=== PATIENT | female | born 1935 | race Caucasian/White ===

== ENCOUNTER 2019-09-07 12:26 | Inpatient (IN) ==
--- NOTE | 2019-09-07 12:54 | Emergency Department Note ---
ED Disposition Clinical Impression: Chronic obstructive pulmonary disease (COPD), Urinary tract infection, Dehydration, Altered mental status, Generalized weakness, Hypertension, Hyperlipidemia, Cigarette smoker, SIRS (systemic inflammatory response syndrome) Disposition: Admitted As Inpatient Condition on Discharge: Serious Referrals: Anna Brewster APRN [Primary Care Provider] - Time of Disposition: 16:09 - Critical Care Critical Care Time: No Attestation: On 09/07/19, the high probability of a clinically significant, sudden or life threatening deterioration of the following system(s) required my full and direct attention, intervention and personal management. The time I documented below is in addition to time spent performing reported procedures but includes the following listed in this critical care notation. Medical Decision Making - Medical Records Medical records reviewed: Yes: I reviewed the patient's medical records. - Rick Inquiry Pt receiving controlled substance: No Vital Signs: 09/07/19 12:36 09/07/19 14:01 09/07/19 14:55 Temperature 98.5 F Temperature Source Oral Pulse Rate Pulse Rate [Right Radial] 92 H 88 86 Respiratory Rate 20 Blood Pressure [Right Arm] 106/52 L 130/64 126/56 L Blood Pressure Mean [Right Arm] 70 86 79 Blood Pressure Source [Right Arm] Automatic Cuff Automatic Cuff Blood Pressure Position [Right Arm] Sitting Sitting 02 Sat by Pulse Oximetry 91 L 98 98 Oxygen Delivery Method Room Air Nasal Cannula Nasal Cannula Oxygen Flow Rate (LPM) 2 2 09/07/19 14:57 09/07/19 15:00 09/07/19 16:05 Temperature Temperature Source Pulse Rate 98 H Pulse Rate [Right Radial] 92 H 90 Respiratory Rate 22 Blood Pressure [Right Arm] 115/46 L 135/57 L Blood Pressure Mean [Right Arm] 69 83 Blood Pressure Source [Right Arm] Automatic Cuff Blood Pressure Position [Right Arm] Sitting 02 Sat by Pulse Oximetry 94 L 99 97 Oxygen Delivery Method Nasal Cannula Nasal Cannula Nasal Cannula Oxygen Flow Rate (LPM) 3 2 2 - Lab Data Lab Results 09/07/19 12:40: Specimen Source Right radial, O2 % 21, ABG pH 7.35, ABG pCO2 48.1 H, ABG pO2 59.1 L, ABG HCO3 26.0, ABG Total CO2 27.5 H, ABG O2 Saturation 90, ABG Base Excess 0.4, Nav Test Acceptable 09/07/19 13:22: WBC 21.7 H*, RBC 4.74, Hgb 14.2, Hct 42.8, MCV 90.5, MCH 30.0, MCHC 33.2, RDW 12.6, Plt Count 265, MPV 8.2, Neut % (Auto) 88.9 H, Lymph % (Auto) 5.4 L, [place] % (Auto) 4.4, Eos % (Auto) 1.1, Baso % (Auto) 0.2, Neut # (Auto) 19.3 H, Lymph # (Auto) 1.2, [place] # (Auto) 0.9, Eos # (Auto) 0.2, Baso # (Auto) 0.0, Total Counted 100, Neutrophils % (Manual) 88 H, Lymphocytes % (Manual) 8 L, Monocytes % (Manual) 4, Platelet Estimate Normal, RBC Morphology Normal 09/07/19 13:22: Sodium 139, Potassium 4.0, Chloride 97 L, Carbon Dioxide 27, A nion Gap 19.0 H, BUN 46 H, Creatinine 1.00, Estimated Creat Clear 32, Estimated GFR 53 L, Est GFR ( Amer) 64, Glucose 135 H, Calcium 9.6, Total Bilirubin 0.7, AST 16, ALT 19, Alkaline Phosphatase 89, Troponin I < 0.02, Total Protein 7.5, Albumin 4.2, Globulin 3.3 H, Albumin/Globulin Ratio 1.3, TSH 0.67 09/07/19 13:50: Urine Color Yellow, Urine Appearance Clear, Urine pH 5.5, Ur Specific [place] >= 1.030, Urine Protein Trace, Urine Glucose (UA) Negative, Urine Ketones 1+, Urine Blood 1+, Urine Nitrate Negative, Urine Bilirubin Negative, Urine Urobilinogen 0.2, Ur Leukocyte Esterase Negative, Urine RBC 3-5, Urine WBC 5-10, Ur Squamous Epith Cells Occasional, Urine Bacteria 3+ A 09/07/19 13:55: Lactate 1.0 Result diagrams: 09/07/19 13:22 09/07/19 13:22 Orders (Tests/Meds): ED MEDICATIONS Discontinued Medications Generic Name Dose Route Start Last Admin Trade Name Freq PRN Reason Stop Dose Admin Albuterol/Ipratropium 3 ml 09/07/19 14:05 09/07/19 14:56 Duoneb 3ml Neb IH 09/07/19 14:06 3 ml ONCE ONE Administration Levofloxacin/Dextrose 500 mg in 100 mls @ 100 mls/hr 09/07/19 14:15 09/07/19 14:13 Levaquin 500mg/100ml Premix IV 09/07/19 15:14 100 mls/hr ONCE ONE Administration Protocol Sodium Chloride 500 mls @ 999 mls/hr 09/07/19 14:15 09/07/19 14:15 Sod Chlor 0.9% 1000ml Bag IV 09/07/19 14:45 999 mls/hr .Q31M APRIL Administration ORDERS Category Date Time Status Troponin I Q3H Lab 09/07/19 15:45 Ordered Troponin I Q3H Lab 09/07/19 18:45 Ordered Blood Culture Stat Micro 09/07/19 14:00 Received Urine Culture(cathed specimen) Stat Micro 09/07/19 13:50 Received - ECG Data Tracing #1 I reviewed this ECG and interpreted as documented below: Normal sinus rhythm at a ventricular rate of 94 bpm. Normal [place] interval at 162 ms. Normal QRS duration at 72 ms. Normal corrected QT interval at 425 ms. Normal QRS axis. Normal ST segment and normal T waves. No ectopy. No blocks. No hypertrophy. Normal twelve-lead EKG ECG initial impression date: 09/07/19 ECG initial impression time: 13:32 ECG normal with no acute: arrhythmias, ischemia, conduction abnormalities, chamber hypertrophy Normal Sinus Rhythm: Yes General Adult HPI - General Chief complaint: Altered Mental Status Stated complaint: Confusion Time Seen by Provider: 09/07/19 12:40 Mode of Arrival: Wheelchair Limitations: Altered Mental Status Description of Symptoms (Recalled from ER Triage Doc. by RN): family states that patient was found at home confused today. pt is normally independent and lives alone. last known well time was 2 days ago. pt c/o to family member today that she had some discomfort when voiding. - History of Present Illness HPI narrative: 84-year old thin female chronic smoker with a history of COPD is brought to the emergency department by her family who report that the patient is confused. This morning the patient was found by family members to be slow to answer questions and slow to initiate movement. She placed her oxygen in her mouth rather than on her nose. Family members state that the patient had a similar episode with a previous bout of pneumonia. Family also state that it looks as though she did not get out of bed all day yesterday. Family members also state that she has not requested a cigarette this morning which is abnormal for her. Onset (ago): unknown (Patient was found with the symptoms this morning.) Severity: moderate Consistency: constant Relieving factors: none Exacerbating factors: none Treatments prior to arrival: none - Related Data Home Medications Medication Instructions Recorded Confirmed Aspirin [Aspirin 81mg EC Tab] 81 mg PO DAILY 09/07/19 09/07/19 Buspirone HCl [Buspirone 15 mg 7.5 mg PO BID 09/07/19 09/07/19 Tablets] Citalopram Hydrobromide [Celexa 10 mg PO DAILY 09/07/19 09/07/19 10mg Tablet] Fluticasone Propionate [Flonase 2 spr NS DAILY 09/07/19 09/07/19 50mcg nasal spray 16gm] Fluticasone Propionate [Flovent 1 puffs IH BID 09/07/19 09/07/19 Hfa 110mcg Inhaler] Ipratropium/Albuterol Sulfate 1 puff IH DAILY 09/07/19 09/07/19 [Combivent Respimat Inh] Ipratropium/Albuterol Sulfate 3 ml IH DAILY 09/07/19 09/07/19 [Duoneb 3mL neb] Mirtazapine [Remeron 15mg tablet] 15 mg PO HS 09/07/19 09/07/19 Simvastatin 20 mg PO HS 09/07/19 09/07/19 Solifenacin Succinate [Vesicare] 5 mg PO DAILY 09/07/19 09/07/19 Allergies Allergy/AdvReac Type Severity Reaction Status Date / Time Penicillins Allergy Verified 09/07/19 12:[address] [facility] History - Hepatitis A Screen Drug use history?: No High risk sexual behaviors?: No History of sexually transmitted infection?: No Currently employed?: No Childcare worker?: No Do you have indoor plumbing?: Yes Do you have electricity?: Yes Attestation statement:: This patient has been screened for Hepatitis A risk factors. I have reviewed the patient's past medical history: Yes Medical History: Reports:: Chronic Obstructive Pulmonary Disease (COPD), Hyperlipidemia, Hypertension Denies:: Diabetes Mellitus Type 1, Diabetes Mellitus Type 2 Other Surgeries: Yes: Appendectomy, Amputation: No Fractures: Yes - Social History Smoking Status: Current every day smoker # Packs/Day (cigarettes): 1 Alcohol Intake: never Alcohol Intake Frequency:: holidays/special occasions only Occupational Status: retired Family Hx:: Cancer, Stroke ROS Obtained: Yes Systems reviewed as appropriate & no additional complaints - Constitutional Constitutional: Reports fatigue, Reports malaise - Eyes Eyes: Reports system reviewed and no additional complaints, except as docu - ENT Ears, Nose, Mouth, and Throat: Reports system reviewed and no additional complaints, except as docu - Cardiovascular Cardiovascular: Reports system reviewed and no additional complaints, except as docu - Respiratory Respiratory: Yes non-productive cough - Gastrointestinal Gastrointestingal: Reports: system reviewed and no additional complaints, except as docu - Genitourinary Female Genitourinary: Reports dysuria - Musculoskeletal Musculoskeletal: Reports system reviewed and no additional complaints, except as docu - Integumentary/Breasts Skin/Breast: Reports system reviewed and no additional complaints, except as docu - Neurologic Neurologic: Reports confusion - Endocrine Endocrine: Reports system reviewed and no additional complaints, except as docu - Hematologic/Lymphatic Henatologic/Lymphatic: Reports system reviewed and no additional complaints, except as docu - Allergic/Immunologic Allergic/Immunologic: Reports system reviewed and no additional complaints, except as docu Physical Exam - General General appearance: in no apparent distress - Head Head exam: atraumatic, normocephalic, normal inspection - Eye Eye exam: Present: normal appearance, PERRL, EOMI - ENT ENT exam: Present: mucous membranes moist - Neck Neck exam: Present: normal inspection, full ROM, trachea midline. Absent: meningismus, lymphadenopathy - Chest Chest inspection: Present: normal inspection, symmetric chest wall rise. Absent: tenderness - Respiratory Respiratory exam: Present: wheezes. Absent: respiratory distress - Cardiovascular Cardiovascular exam: Present: regular rate, normal rhythm, normal heart sounds. Absent: JVD - Abdominal Exam Abdominal exam: Present: soft, normal bowel sounds. Absent: distention, tenderness, guarding - Extremities Exam Extremities exam: Present: normal inspection, full ROM, normal capillary refill. Absent: calf tenderness - Back Exam Back exam: Present: normal inspection. Absent: tenderness - Neurological Exam Neurological exam: Present: alert, CN II-XII intact. Absent: motor sensory deficit - Psychiatric Psychiatric exam: Present: normal affect, normal mood - Skin Skin exam: Present: warm, dry, intact, normal color
[2019-09-07 13:20] LABS: ABG Base Excess 0.4 mmol/L (-2.4-2.3); ABG Oxygen Saturation 90 % (90-100); ABG PCO2 48.1 mmhg (35.0-45.0); ABG PH 7.35 mmol/L (7.35-7.45); ABG PO2 59.1 mmhg (80-100); ABG TCO2 27.5 mmhg (23-27)
[2019-09-07 13:26] LABS: Allen's Test ACCEPTABLE; Oxygen 21 %
[2019-09-07 13:37] LABS: Basophils % 0.2 % (0.1-2.0); Eosinophils # 0.2 K/mm3 (0.0-0.4); Eosinophils % 1.1 % (0.1-12.0); Hematocrit 42.8 % (37.0-47.0); Hemoglobin 14.2 g/dL (12.2-16.2); Lymphocytes # 1.2 K/mm3 (0.7-4.5); Lymphocytes % 5.4 % (10-50); Mean Corpuscular HGB Conc 33.2 g/dL (31.8-35.4); Mean Corpuscular Volume 90.5 fl (81-99); Mean Platelet Volume 8.2 fl (7.4-10.4); Monocytes # 0.9 K/mm3 (0.1-1.0); Monocytes % 4.4 % (1.7-9.3); Neutrophils # 19.3 K/mm3 (1.8-7.8); Neutrophils % 88.9 % (37.0-80.0); Platelet Count 265 K/mm3 (142-424); Red Blood Count 4.74 M/mm3 (4.20-5.40); Red Cell Distribution Width 12.6 % (11.5-17.5); White Blood Count 21.7 K/mm3 (4.8-10.8)
[2019-09-07 14:00] LABS: Alanine Aminotransferase 19 U/L (12-78); Albumin Level 4.2 gm/dL (3.4-5.0); Albumin/Globulin Ratio 1.3 (1.1-1.8); Alkaline Phosphatase 89 U/L (46-116); Aspartate Amino Transferase 16 U/L (15-37); Bilirubin,Total 0.7 mg/dL (0.2-1.0); Blood Urea Nitrogen 46 mg/dL (7-18); Calcium 9.6 mg/dL (8.5-10.1); Carbon Dioxide 27 mmol/L (21.0-32.0); Chloride 97 mmol/L (98-107); Globulin 3.3 gm/dl (1.3-3.2); Glucose 135 mg/dL (74-106); Sodium 139 mmol/L (136-145); Thyroid Stimulating Hormone 0.67 uIU/ml (0.358-3.740); Total Protein,Serum 7.5 gm/dL (6.4-8.2)
[2019-09-07 14:06] LABS: Lymphocytes % 8 % (10-50); Monocytes % 4 % (2-9); Neutrophils % 88 % (42-76); RBC Morphology Normal; Total Cells Counted 100
[2019-09-08 06:42] LABS: Eosinophils % 0.3 % (0.1-12.0); Hematocrit 37.8 % (37.0-47.0); Lymphocytes # 0.6 K/mm3 (0.7-4.5); Lymphocytes % 4.1 % (10-50); Mean Corpuscular HGB Conc 33.3 g/dL (31.8-35.4); Mean Corpuscular Volume 90.9 fl (81-99); Mean Platelet Volume 8.9 fl (7.4-10.4); Monocytes # 0.3 K/mm3 (0.1-1.0); Neutrophils # 12.8 K/mm3 (1.8-7.8); Neutrophils % 93.6 % (37.0-80.0); Platelet Count 213 K/mm3 (142-424); Red Blood Count 4.16 M/mm3 (4.20-5.40); Red Cell Distribution Width 12.8 % (11.5-17.5); White Blood Count 13.7 K/mm3 (4.8-10.8)
[2019-09-08 06:56] LABS: Albumin Level 3.1 gm/dL (3.4-5.0); Anion Gap 9.9 mEq/L (5-15); Bilirubin,Total 0.4 mg/dL (0.2-1.0); Calcium 8.7 mg/dL (8.5-10.1); Chol/HDL Ratio 1.8 (1-3.5); Total Protein,Serum 6.1 gm/dL (6.4-8.2)
[2019-09-08 06:58] LABS: Phosphorous 1.8 mg/dL (2.4-4.9)
[2019-09-08 07:00] LABS: Hemoglobin 12.6 g/dL (12.2-16.2)
--- NOTE | 2019-09-08 07:28 | Pharmacy Consult Notes ---
[facility] Pharmacy VTE Monitoring - Patient Demographics Admission date: 09/07/19 Report Date: 09/08/19 Time: 07:28 Allergies/Adverse Reactions: Patient Allergies Penicillins Allergy (Verified 09/07/19 12:40) Height: 1.45 m Weight: 47.372 kg Patient Problems: Current Active Problems Chronic obstructive pulmonary disease (COPD) (Acute) Urinary tract infection (Acute) Dehydration (Acute) Altered mental status (Acute) Generalized weakness (Acute) Hypertension (Acute) Hyperlipidemia (Acute) Cigarette smoker (Acute) SIRS (systemic inflammatory response syndrome) (Acute) - VTE Risk Labs: VTE Related Lab Results Hgb 12.6 g/dL (12.2-16.2) D 09/08/19 06:23 Hct 37.8 % (37.0-47.0) 09/08/19 06:23 Plt Count 213 K/mm3 (142-424) 09/08/19 06:23 BUN 19 mg/dL (7-18) H D 09/08/19 06:23 Creatinine 0.52 mg/dL (0.55-1.02) L D 09/08/19 06:23 Estimated Creat Clear 30 mL/min (50-200) 09/08/19 06:23 Was VTE Risk Assessment Performed: Yes VTE Score: 5 VTE Risk Level: Low Risk - Prophylaxis VTE Prophylaxis Ordered?: Yes Types of VTE Prophylaxis: TEDS Knee High Location of Applied Device: Bilateral Lower Extremeties - VTE Diagnosis Confirmed Treatment or plan recommended: Continue Current Treatment
--- NOTE | 2019-09-08 08:27 | History & Physical Report ---
*Admission Date: 09/07/19 *Chief complaint: ams *History of present illness: 84-year old thin chronic ill appearing female with a history of COPD is brought to the ED by her family who report that the patient is confused, patient was found by family members to be slow to answer questions and slow to initiate movement. She placed her oxygen in her mouth rather than on her nose and had given herself a breathing treatment. Per family patient was her normal self on Saturday. Pt admitted for uti with 3+ bacteria. culture pending. [facility] History I have reviewed the patient's past medical history: Yes Medical History: Reports:: Chronic Obstructive Pulmonary Disease (COPD), Hyperlipidemia, Hypertension Denies:: Diabetes Mellitus Type 1, Diabetes Mellitus Type 2 *Have you ever received a pneumonia vaccine?: Yes *Have you received a flu vaccine this season?: Yes Other Surgeries: Yes: Appendectomy, Amputation: No Fractures: Yes - *Social History Smoking Status: Current every day smoker Tobacco Type: cigarettes # Packs/Day (cigarettes): 1 Alcohol Intake: current Alcohol Intake Frequency:: holidays/special occasions only *Occupational Status:: retired *Travel in the last 8 weeks: None Family Hx:: Cancer, Stroke Review of Systems - Review of Systems Review of systems:: pertinent systems reviewed and negative unless documented below - Constitutional Denies body ache(s), Denies lack of energy - Eyes Denies change in vision - ENT Denies change in voice - *Cardiovascular Reports shortness of breath, Denies chest pain with activity, Denies excessive sweating - *Respiratory Reports shortness of breath, Reports shortness of breath with activity, Denies chest congestion - *Gastrointestinal Denies nausea, Denies vomiting - *Genitourinary Denies urinary incontinence - *Musculoskeletal Denies stiffness - Integumentary/Breasts Denies rash - *Neurologic Reports confusion, Reports weakness, Denies abnormal movements - Psychiatric Denies anxiety - Endocrine Denies increased thirst - Hematologic/Lymphatic Denies enlarged lymph nodes - Allergic/Immunologic Denies lip swelling Meds Home Medications Medication Instructions Recorded Confirmed Type Aspirin [Aspirin 81mg EC Tab] 81 mg PO DAILY 09/07/19 09/07/19 History Buspirone HCl [Buspirone 15 mg 7.5 mg PO BID 09/07/19 09/07/19 History Tablets] Citalopram Hydrobromide [Celexa 10 mg PO DAILY 09/07/19 09/07/19 History 10mg Tablet] Fluticasone Propionate [Flonase 2 spr NS DAILY 09/07/19 09/07/19 History 50mcg nasal spray 16gm] Ipratropium/Albuterol Sulfate 1 puff IH DAILY 09/07/19 09/07/19 History [Combivent Respimat Inh] Ipratropium/Albuterol Sulfate 3 ml IH DAILY 09/07/19 09/07/19 History [Duoneb 3mL neb] Mirtazapine [Remeron 15mg tablet] 15 mg PO HS 09/07/19 09/07/19 History Simvastatin 20 mg PO HS 09/07/19 09/07/19 History Solifenacin Succinate [Vesicare] 5 mg PO DAILY 09/07/19 09/07/19 History Fluticasone Propionate 1 puff IH BID 09/08/19 09/08/19 History [Fluticasone Hfa 220mcg Inhaler] Allergies Allergy/AdvReac Type Severity Reaction Status Date / Time Penicillins Allergy Verified 09/07/19 12:40 Exam Vital signs and Labs for Last 24 Hours: Temp Pulse Resp BP Pulse Ox 97.5 F L 67 17 112/49 L 99 09/08/19 08:00 09/08/19 08:00 09/08/19 08:00 09/08/19 08:00 09/08/19 08:00 Laboratory Results - last 24 hr 09/07/19 12:40: Specimen Source Right radial, O2 % 21, ABG pH 7.35, ABG pCO2 48.1 H, ABG pO2 59.1 L, ABG HCO3 26.0, ABG Total CO2 27.5 H, ABG O2 Saturation 90, ABG Base Excess 0.4, Nav Test Acceptable 09/07/19 13:22: WBC 21.7 H*, RBC 4.74, Hgb 14.2, Hct 42.8, MCV 90.5, MCH 30.0, MCHC 33.2, RDW 12.6, Plt Count 265, MPV 8.2, Neut % (Auto) 88.9 H, Lymph % (Auto) 5.4 L, [place] % (Auto) 4.4, Eos % (Auto) 1.1, Baso % (Auto) 0.2, Neut # (Auto) 19.3 H, Lymph # (Auto) 1.2, [place] # (Auto) 0.9, Eos # (Auto) 0.2, Baso # (Auto) 0.0, Total Counted 100, Neutrophils % (Manual) 88 H, Lymphocytes % (Manual) 8 L, Monocytes % (Manual) 4, Platelet Estimate Normal, RBC Morphology Normal 09/07/19 13:22: Sodium 139, Potassium 4.0, Chloride 97 L, Carbon Dioxide 27, Anion Gap 19.0 H, BUN 46 H, Creatinine 1.00, Estimated Creat Clear 32, Estimated GFR 53 L, Est GFR ( Amer) 64, Glucose 135 H, Calcium 9.6, Total Bilirubin 0.7, AST 16, ALT 19, Alkaline Phosphatase 89, Troponin I < 0.02, Total Protein 7.5, Albumin 4.2, Globulin 3.3 H, Albumin/Globulin Ratio 1.3, TSH 0.67 09/07/19 13:50: Urine Color Yellow, Urine Appearance Clear, Urine pH 5.5, Ur Specific [place] >= 1.030, Urine Protein Trace, Urine Glucose (UA) Negative, Urine Ketones 1+, Urine Blood 1+, Urine Nitrate Negative, Urine Bilirubin Negative, Urine Urobilinogen 0.2, Ur Leukocyte Esterase Negative, Urine RBC 3-5, Urine WBC 5-10, Ur Squamous Epith Cells Occasional, Urine Bacteria 3+ A 09/07/19 13:55: Lactate 1.0 09/08/19 06:23: WBC 13.7 H D, RBC 4.16 L, Hgb 12.6 D, Hct 37.8, MCV 90.9, MCH 30.3, MCHC 33.3, RDW 12.8, Plt Count 213, MPV 8.9, Neut % (Auto) 93.6 H, Lymph % (Auto) 4.1 L, [place] % (Auto) 2.0, Eos % (Auto) 0.3, Baso % (Auto) 0.0 L, Neut # (Auto) 12.8 H, Lymph # (Auto) 0.6 L, [place] # (Auto) 0.3, Eos # (Auto) 0.0, Baso # (Auto) 0.0 09/08/19 06:23: Sodium 139, Potassium 4.9 D, Chloride 104, Carbon Dioxide 30, Anion Gap 9.9, BUN 19 H D, Creatinine 0.52 L D, Estimated Creat Clear 30, Estimated GFR 112, Est GFR ( Amer) 135 D, Glucose 253 H D, Calcium 8.7, Phosphorus 1.8 L, Magnesium 1.9, Total Bilirubin 0.4, AST 9 L D, ALT 16, Alkaline Phosphatase 71, Total Protein 6.1 L, Albumin 3.1 L D, Globulin 3.0, Albumin/Globulin Ratio 1.0 L, Triglycerides 37, Cholesterol 122 L, LDL Cholesterol 46, VLDL Cholesterol 7, HDL Cholesterol 69, Cholesterol/HDL Ratio 1.8 I & O for Last 24 hours: Intake & Output 09/05/19 09/06/19 09/07/19 09/08/19 11:59 11:59 11:59 11:59 Intake Total 1979 / 1979 Output Total 650 / 650 Balance 1330 / 1330 Weight 104 lb 7 oz - Constitutional no acute distress, thin, chronically ill appearing - *Routine HEENT Exam Head: Present: normocephalic Eye: Present: PERRL ENT: Present: mucous membranes moist - *Routine Neck Exam Present: supple. Absent: lymphadenopathy - *Routine Respiratory Exam Present: wheezes - *Routine Cardiovascular Exam Present: RRR - *Routine Abdominal Exam Present: soft, normoactive bowel sounds. Absent: tenderness - *Routine Extremities Exam Present: full ROM. Absent: cyanosis, clubbing, edema - *Routine Skin Exam Present: warm. Absent: rash - *Routine Neurological Exam Present: alert pt asking if it rained at home a few times while in room, and talking about random things- son states is unlike her Assessment and Plan (1) UTI (urinary tract infection) Current visit: Yes Status: Acute Qualifiers: Urinary tract infection type: acute cystitis Hematuria presence: with hematuria Qualified Code(s): N30.01 - Acute cystitis with hematuria Category: Medical Code(s): N39.0 - Urinary tract infection, site not specified (2) Altered mental status Current visit: Yes Status: Acute Qualifiers: Altered mental status type: disorientation Qualified Code(s): R41.0 - Disorientation, unspecified Category: Medical Code(s): R41.82 - Altered mental status, unspecified (3) Chronic obstructive pulmonary disease (COPD) Current visit: Yes Status: Acute Qualifiers: COPD type: unspecified COPD Qualified Code(s): J44.9 - Chronic obstructive pulmonary disease, unspecified Category: Medical Code(s): J44.9 - Chronic obstructive pulmonary disease, unspecified (4) Cigarette smoker Current visit: Yes Status: Acute Category: Medical Code(s): F17.210 - Nicotine dependence, cigarettes, uncomplicated (5) Generalized weakness Current visit: Yes Status: Acute Category: Medical Code(s): R53.1 - Weakness - Assessment and plan all Dx Assessment and Plan for all problems:: Rounded with Dr Duff all orders per Dr Duff
[2019-09-08 09:15] LABS: Lymphocytes % 4 % (10-50); Monocytes % 2 % (2-9); Neutrophils % 94 % (42-76); RBC Morphology Normal; Total Cells Counted 100
--- OUTSIDE RECORDS SUMMARY | 2019-09-08 10:34 | External Medical Summary | Continuity of Care Document ---
:1935 Author Organization [facility] Address [address] [place] [address] Phone Care Team Providers Name Role Phone Maia Attending Provider [place] Primary Care Provider Atul Duff Attending Provider Allergies, Adverse Reactions, Alerts Allergen Type Severity Reaction Last Updated Verified Status Penicillins Allergy August Yes Active 2018 12:40pm Medications Medication Status Dose Units Route Sig Qty Days Start End Instruct ions Date Date Ipratropium/A Active 1 PUFF INHALATI Daily August lbuterol ON 2018 3:53pm Aspirin Active 81 MG Oral Daily September 07, 2019 3:53pm Buspirone Hcl Active 7.5 MG Oral Twice August a day 2018 3:53pm Citalopram Active 10 MG Oral Daily August Hydrobromide 2018 3:53pm Ipratropium/A Active 3 ML INHALATI Daily August lbuterol ON 2018 3:53pm Fluticasone Discontinu 1 PUFFS INHALATI Twice August embe Propionate ed ON a day , r 2018 3:53pm 8:29am Fluticasone Active 1 SPR NASAL Daily August 23 SP RAY IN Propionate , EACH NOST RIL 2018 ONCE DAILY 3:53pm Mirtazapine Active 15 MG Oral At August nightl 3:53pm y Simvastatin Active 20 MG Oral At August nightl 3:53pm y Solifenacin Active 5 MG Oral Daily August 3:53pm Fluticasone Active 1 PUFF INHALATI Twice August ON a day 2018 8:25am Problems Active Problems Medical Problem Onset Date Status Fat pad atrophy of foot Active UTI (urinary tract infection) Active Urinary tract infection Active Hyperlipidemia Active Keratosis Active SIRS (systemic inflammatory response Act belinda syndrome) Acquired equinus deformity of both Activ e feet Acquired hammer toes of both feet Active Acquired bilateral pes cavus Active Generalized weakness Active Cigarette smoker Active Callus of foot Active Altered mental status Active Chronic obstructive pulmonary Active disease (COPD) Hypertension Active Dehydration Active Procedures Procedure Date Performed Status CT head/brain wo con September 07, 2019 12:40pm completed XR chest AP September 07, 2019 12:40pm completed ECG initial Besson September 07, 2019 1:32pm completed Urine Culture September 07, 2019 active Blood Culture September 07, 2019 active Blood Culture September 07, 2019 active Relevant Diagnostic Tests and/or Laboratory Data Laboratory Results Test Date/Time Result Interpretation Reference Result Perfo rming Range Comment Site White Blood August 13.7 K/mm3 4.8-10.8 Delta: 21.7 [facility], [address] [place] [address] E Count 2018 on Tiffani WOMACK 26810 6:23am 09/07/19-1322 Red Blood August 4.16 M/mm3 4.20-5.[address] 36 E Count 2018 Tiffani WOMACK 62586 6:23am Hemoglobin August 12.6 g/dL 12.2-16.2 Delta: 14.[address] 36 E 2018 on Tiffani WOMACK 33607 6:23am 09/07/19-1322 Hematocrit August 37.8 % 37.0-47.0 [place] [address] E 2018 Tiffani WOMACK 16457 6:23am Mean August 90.9 fl 81-99 [place] [address] E Corpuscular 2018 Kitty WOMACK 21409 Volume 6:23am Mean August 30.3 pg 27.0-31.2 [place] [address] E Corpuscular 2018 Kitty WOMACK 48537 Hemoglobin 6:23am Mean [place] 33.3 g/dL 31.8-35.4 [facility], [address] [place] [address] 36 E Corpuscular 2018 Kitty WOMACK 42662 Hemoglobin 6:23am Concent Red Cell [place] 12.8 % 11.5-17.5 [facility], [address] [place] [address] 36 E Distribution 2018 Ashlyn WOMACK 34778 Width 6:23am Platelet Count August 213 K/mm3 142-424 [facility], [address] [place] [address] E 2018 Tiffani WOMACK 98834 6:23am Mean Platelet [place] 8.9 fl 7.4-10.4 [facility], [address] [place] [address] E Volume 2018 Tiffani Lee 6:23am Neutrophils [place] 93.6 % 37.0-80.0 [facility], [address] [place] [address] E (%) (Auto) 2018 Yvrose Lee 6:23am Lymphocytes [place] 4.1 % 10-50 [place] [address] E (%) (Auto) 2018 Yvrose WOMACK 55031 6:23am Monocytes (%) [place] 2.0 % 1.7-9.3 [facility], [address] [place] [address] E (Auto) 2018 Tiffani WOMACK 69297 6:23am Eosinophils [place] 0.3 % 0.1-12.0 [place] [address] E (%) (Auto) 2018 Yvrose WOMACK 89751 6:23am Basophils (%) [place] 0.0 % 0.1-2.0 [facility], [address] [place] [address] 36 E (Auto) 2018 Tiffani WOMACK 13513 6:23am Neutrophils # [place] 12.8 K/mm3 1.8-7.8 [facility], [address] [place] [address] E (Auto) 2018 Tiffani WOMACK 35442 6:23am Lymphocytes # [place] 0.6 K/mm3 0.7-4.5 [facility], [address] [place] [address] E (Auto) 2018 Tiffani WOMACK 74138 6:23am Monocytes # [place] 0.3 K/mm3 0.1-1.0 [facility], [address] [place] [address] 36 E (Auto) 2018 Tiffani WOMACK 86275 6:23am Eosinophils # [place] 0.0 K/mm3 0.0-0.4 [facility], [address] [place] [address] 36 E (Auto) 2018 Tiffani WOMACK 21452 6:23am Basophils # [place] 0.0 K/mm3 0-0.2 [facility], [address] [place] [address] 36 E (Auto) 2018 Tiffani WOMACK 95058 6:23am Differential [place] 100 [facility], [address] [place] [address] 36 E Total Cells 2018 Kitty WOMACK 60349 Counted 6:23am Neutrophils % [place] 94 % 42-76 [facility], [address] [place] [address] 36 E (Manual) 2018 Tiffani WOMACK 61642 6:23am Lymphocytes % [place] 4 % 10-50 [facility], [address] [place] [address] 36 E (Manual) 2018 Tiffani WOMACK 74028 6:23am Monocytes % [place] 2 % 2-9 [facility], [address] [place] [address] 36 E (Manual) 2018 Tiffani WOMACK 08406 6:23am Platelet [place] Normal [facility], [address] [place] [address] E Estimate 2018 Tiffani WOMACK 81793 6:23am Red Blood Cell [place] Normal [facility], [address] [place] [address] 36 E Morphology 2018 Yvrose WOMACK 42088 6:23am Urine Color [place] Yellow Yellow [facility], [address] [place] [address] 36 E 2018 Tiffani WOMACK 73779 1:50pm Urine [place] Clear Clear [facility], [address] [place] [address] 36 E Appearance 2018 Yvrose WOMACK 28698 1:50pm Urine pH [place] 5.5 5.0-8.5 [facility], [address] [place] [address] 36 E 2018 Tiffani WOMACK 56367 1:50pm Urine Specific [place] >= 1.030 1.005-1.03 [facility], [address] [place] [address] 36 E G[place] 2018 0 Tiffani WOMACK 95987 1:50pm Urine Protein [place] Trace Negative [facility], [address] [place] [address] 36 E 2018 Tiffani WOMACK 23168 1:50pm Urine Glucose [place] Negative Negative [facility], [address] [place] [address] E (UA) 2018 Tiffani WOMACK 86531 1:50pm Urine Ketones [place] 1+ Negative [facility], [address] [place] [address] 36 E 2018 Tiffani WOMACK 96727 1:50pm Urine Blood [place] 1+ Negative [facility], [address] [place] [address] 36 E 2018 Tiffani WOMACK 74361 1:50pm Urine Nitrate [place] Negative Negative [facility], [address] [place] [address] 36 E 2018 Tiffani WOMACK 99702 1:50pm Urine [place] Negative Negative CONFIRM [facility], [address] [place] [address] E Bilirubin 2018 BILIRUBIN Tiffani WOMACK 32038 1:50pm RESULT WITH ICTOTEST: NEGATIVE Urine [place] 0.2 EU/dl [facility], [address] [place] [address] E Urobilinogen 2018 Ashlyn WOMACK 48486 1:50pm Urine [place] Negative Negative [facility], [address] [place] [address] E Leukocyte 2018 Tiffani WOMACK 69567 Esterase 1:50pm Urine RBC August 3-5 # /hpf [facility], [address] [place] [address] 36 E 2018 Tiffani WOMACK 97638 1:50pm Urine WBC August 5-10 #/hpf [facility], [address] [place] [address] 36 E 2018 Tiffani WOMACK 46230 1:50pm Urine Squamous [place] Occasional [facility], [address] [place] [address] 36 E Epithelial 2018 #/[place] [address] Cells 1:50pm Urine Bacteria August 3+ /lpf None [facility], [address] [place] [address] 36 E 2018 Tiffani WOMACK 21251 1:50pm Troponin I August < 0.02 0.00-0.06 *ALERT* High [facility], [address] [place] [address] 36 E 2018 ng/ml levels of Tiffani WOMACK 02412 1:22pm Biotin can falsely depress Troponin results.Many dietary supplements promoted for hair,skin, and nail benefits contain biotin levels up to 650 times the recommended daily intake of biotin. In additon to dietary supplements, Biotin is occasionally prescribed for medical conditions. Sodium Level August 139 mmol/L 136-145 [facility], [address] [place] [address] 36 E 2018 Tiffani WOMACK 45126 6:23am Potassium August 4.9 mmoL/L 3.5-5.1 Delta: 4.0 on [facility], [address] [place] [address] E Level 201809/07/19 Mary castellanosimran WOMACK 80787 6:23am Chloride Level August 104 mmol/L 98-107 [facility], [address] [place] [address] E 2018 Tiffani WOMACK 37148 6:23am Carbon Dioxide August 30 mmol/L 21.0-32.0 [facility], [address] [place] [address] E Level 2018 Tiffani WOMACK 55545 6:23am Anion Gap August 9.9 mEq/L 5-15 [facility], [address] [place] [address] E 2018 [place] [address] 6:23am Blood Urea August 19 mg/dL 7-18 Delta: 46 on [facility], [address] [place] [address] E Nitrogen 201809/07/19 Mary castellanosimran WOMACK 13752 6:23am Creatinine August 0.52 mg/dL 0.55-1.02 Delta: 1.00 [facility], [address] [place] [address] E 2018 [place] [address] 6:23am 09/07/19 Estimated August 30 mL/min 0-300 [place] [address] E Creatinine 2018 Yvrose WOMACK 47488 Clearance 6:23am Estimated GFR August 135 ML/MIN >59 Delta: 64 on [facility], [address] [place] [address] E ( 201809/07/19 Mary WOMACK 00177 [place]) 6:23am Estimat August 112 ml/min >59 [facility], [address] [place] [address] E Glomerular 2018 Yvrose WOMACK 82230 Filtration 6:23am Rate Glucose Level August 253 mg/dL 74-106 Delta: 135 on [place] [address] E 201809/07/19-1321 Mary WOMACK 17422 6:23am Lactate [place] 1.0 mmol/L 0.4-2.0 [facility], [address] [place] [address] 36 E 2018 Tiffani WOMACK 11234 1:55pm Calcium Level August 8.7 mg/dL 8.5-10.1 [facility], [address] [place] [address] 36 E 2018 [place] [address] 6:23am Phosphorus [place] 1.8 mg/dL 2.4-4.9 [facility], [address] [place] [address] E Level 2018 NOTIFICATION Ashlyn WOMACK 76994 6:23am RESULT Result s called to: on 09/08/19 at 0658By Annette Cartagena Magnesium August 1.9 mg/dL 1.4-2.2 [facility], [address] [place] [address] E Level 2018 Tiffani WOMACK 58131 6:23am Total [place] 0.4 mg/dL 0.2-1.0 [facility], [address] [place] [address] E Bilirubin 2018 Tiffani WOMACK 96270 6:23am Aspartate August 9 U/L 15-37 Delta: 16 on [facility], [address] [place] [address] E Amino Transf 201809/07/19-1321 Cy ntcarla WOMACK 86144 (AST/SGOT) 6:23am Alanine August 16 U/L 12-78 [facility], [address] [place] [address] E Aminotransfera 2018 Cynt carla WOMACK 54520 se (ALT/SGPT) 6:23am Total Protein August 6.1 gm/dL 6.4-8.2 [facility], [address] [place] [address] 36 E 2018 Tiffani WOMACK 21263 6:23am Albumin [place] 3.1 gm/dL 3.4-5.0 Delta: 4.2 on [facility], [address] [place] [address] 36 E 201809/07/19-1321 Cynjina WOMACK 62486 6:23am Globulin [place] 3.0 gm/dl 1.3-3.2 [facility], [address] [place] [address] E 2018 Tiffani WOMACK 66165 6:23am Albumin/Globul [place] 1.0 1.1-1.8 [facility], [address] [place] [address] E in Ratio 2018 Tiffani WOAMCK 97767 6:23am Triglycerides [place] 37 mg/dL 30-200 [facility], [address] [place] [address] E Level 2018 Tiffani WOMACK 44924 6:23am Cholesterol [place] 122 mg/dL 140-200 [facility], [address] [place] [address] E Level 2018 Tiffani WOMACK 72261 6:23am LDL [place] 46 mg/dL 0-130 [facility], [address] [place] [address] E Cholesterol 2018 [place] [address] 6:23am VLDL [place] 7 mg/dL 0-40 [facility], [address] [place] [address] E Cholesterol 2018 Kitty WOMACK 42435 6:23am HDL August 69 mg/dL 29-89 [facility], [address] [place] [address] E Cholesterol 2018 Kitty WOMACK 55395 6:23am Cholesterol/HD [place] 1.8 1-3.5 [facility], [address] [place] [address] E L Ratio 2018 Tiffani WOMACK 17632 6:23am Alkaline August 71 U/L 46-116 [facility], [address] [place] [address] E Phosphatase 2018 Kitty simran [place] 56620 6:23am Thyroid [place] 0.67 uIU/ml 0.358-3.74 Please note [facility], [address] [place] [address] E Stimulating 2018 0 the potential Emmie kimberley WOMACK 18033 Hormone (TSH) 1:22pm for biotin to falsely depress the TSH result when high levels of biotin surpassing the daily recommended dose are administered. Arterial Blood August 7.35 mmol/L 7.35-7.45 [facility], [address] [place] [address] E pH 2018 [place]U 53215 12:40pm Arterial Blood August 48.1 mmhg 35.0-45.0 [facility], [address] [place] [address] E Partial 2018 Tiffani WOMACK 74731 Pressure CO2 12:40pm Arterial Blood [place] 59.1 mmhg 80-100 [facility], [address] [place] [address] E Partial 2018 Tiffani WOMACK 82435 Pressure O2 12:40pm Arterial Blood [place] 26.0 mmhg 22.0-26.0 [facility], [address] [place] [address] E HCO3 2018 Tiffani WOMACK 08776 12:40pm Arterial Blood [place] 27.5 mmhg 23-27 [facility], [address] [place] [address] 36 E Total CO2 2018 Tiffani WOMACK 54490 12:40pm Arterial Blood [place] 0.4 mmol/L -2.4-2.3 [facility], [address] [place] [address] E Base Excess 2018 Kitty WOMACK 85070 12:40pm Arterial Blood [place] 90 % 90-100 [facility], [address] [place] [address] E Oxygen 2018 Tiffani WOMACK 87176 Saturation 12:40pm Blood Gas August 21 % [facility], [address] [place] [address] E Oxygen Percent 2018 Cynluis angel WOMACK 68134 12:40pm Nav Test August Acceptable [facility], [address] [place] [address] E 2018 Tiffani WOMACK 36953 12:40pm Blood Gas August Right [facility], [address] [place] [address] E Specimen 2018 radial Tiffani WOMACK 98355 Source 12:40pm Diagnostic Imaging Reports Report Dictated Date/Time Dictated By Status Radiology Report September 07, 2019 Nav Cabrera MD completed 12:56pm [place] [address] E Tiffani Erik Bl[place] [id number] [address] Scan Report Sig essie Patient: Es Negro MR #: [id number] : 1935 Acct:[id number] Age/Sex: 84 / F ADM Date: 9 Loc: ER Attending Dr: Ordering Physician: Juwan Robles MD Date of Service: 09/07/19 Procedure(s): CT head/brain wo con Accession Number(s): [id number] cc: Nav Cabrera MD; Anna Brewster APRN; Juwan Robles MD~ PROCEDURE: CT HEAD/BRAIN WO CON CLINICAL INDICATION: ams Altered mental status, altered level of consciousness, confusion, disorientation COMPARISON: No exams were available fo r comparison TECHNIQUE: Axial images obtained. All CT scans at the facility use one or more dose reduction, viz: automa kimberlyn exposure control, ma/kV adjustment per patient size (including targeted exams where dose is matched to indication, i.e. head), or i terative reconstruction technique. FINDINGS: No midline shift, mass effect, intracra nial hemorrhage, hydrocephalus, or extra-axial fluid col lection is evident. There is generalized atrophy with hypoattenuatio n of the periventricular white matter consistent with microangiopathic changes. The calvarium has an unremarkable appearance. No mastoid eff usion. No sinus air-fluid level. IMPRESSION: No acute intracranial finding Dictated by: Nav Cabrera MD 09/07/2019 13:05 Electronically signed by Nav Cabrera in [place] 09/07/2019 13:05 Radiology Report September 07, 2019 Nav Cabrera MD completed 1:07pm [facility] [address] [place] [facility] [address] [place] [id number] XRay R eport Sig essie Patient: Es Negro MR #: [id number] : 1935 Acct:[id number] Age/Sex: 84 / F ADM Date: 9 Loc: ER Attending Dr: Ordering Physician: Juwan Robles MD Date of Service: 09/07/19 Procedure(s): XR chest AP Accession Number(s): [id number] cc: Nav Cabrera MD; Anna Brewster APRN~ PROCEDURE: XR CHEST AP CLINICAL HISTORY: ams Altered mental status, altered level of consciousness, shortness of air, smoker COMPARISON: No exams were available fo r comparison FINDINGS: The cardiomediastinal silhouette and pu lmonary vascularity are within normal limits. There is slight increase density in the right midlung. This is nonspecific and may be due to summation artifact from the overlying ribs or even a healing rib fracture heber marine a ill-defined pulmonary nodule. Upright PA and lateral chest m ay be of further value. There is a suggestion of a nondisplaced rib f racture at this region involving the right 5th rib anteriorly. Otherwise negative. IMPRESSION: 1. No definite acute finding. 2. Faint opacity right midlung which co uld be due to healing rib fracture, overlying summation density, or developing nodule Dictated by: Nav Cabrera MD 09/07/2019 13:38 Electronically signed by Nav Cabrera in [place] 09/07/2019 13:38 Advance Directives Advance Directive Response Recorded Date/Time Living Will No September 07, 2019 5:13pm Chief Complaint and Reason for Visit Chief Complaint Callus (podiatry) AMS/UTI/COPD/Dehydration Reason for Visit Altered mental status Chronic obstructive pulmonar y disease (COPD) Cigarette smoker Dehydration Generalized weakness Hyperlipidemia Hypertension SIRS (systemic inflammatory response syndrome) Urinary tract infection Encounters Encounter Location(s) Arrival/Admit Date Discharge/Depart Date Provider(s) Departed [facility] Physician June 15, June 15, 2019 Dion Carvalho , Physician/[facility] 2018 8:21am 12:38pm D[facility] Visit Admitted [facility] Physician September 07, [facility] 2018 4:52pm MD Sherin Floor Registered [facility] Physician September 08, [facility] 2018 10:29am MD Sherin Recent Diagnosis Onset Date Altered mental status Chronic obstructive pulmonary disease (COPD) Cigarette smoker Dehydration Generalized weakness Hyperlipidemia Hypertension SIRS (systemic inflammatory response syndrome) Urinary tract infection Assessments Diagnosis Onset Date Resolution Status Altered mental status acute Chronic obstructive acute pulmonary disease (COPD) Cigarette smoker acute Dehydration acute Generalized weakness acute Hyperlipidemia acute Hypertension acute SIRS (systemic inflammatory acut e response syndrome) Urinary tract infection acute Family History Relationship Condition Age at Onset Recorded Date/Ti me Unknown Family History Unknown September 07 019 5:13pm Functional Status Observation Response Date Recorded Oral Care Ability Independent September 07, 2019 5:13pm Bathing Ability Assistance x1 September 08, 2019 10:23am Eating (Feeding) Ability Standby Assistance September 07, 2019 5:13pm Toileting Ability Standby Assistance September 07, 2019 5:13pm Ambulation Ability Standby Assistance September 07, 2019 5:13pm Functional status ambulatory June 15, 2019 10:04am Goals Ambulatory Goals Patient verbalizes understanding of dise ase process. Patient to follow plan of care. Education provided. Mental Status Observation Response Date Recorded Comprehension Ability No Impairment September 07 9 5:13pm Able to Read No September 07, 2019 5:13pm Able to Write Yes September 07, 2019 5:13pm Medical Equipment No Medical Equipment Information available Insurance Providers Guarantor Es Negro Address [address] [place] [address] Contact Info. Home Phone: Payer Policy Id Coverage Id Subscriber's Subscriber Effective Expi ration Name Id Date Date AAR [id number] Es Donaldson [id number] [facility] Marky Villalba Medicaid [id number] Es Donaldson [id number] Marky Medicare [id number] Es Donaldson [id number] Marky Self Pay Self N/A Plan of Treatment IPK: Calluses (see below) and IPK (x3) were debrided with a number 15 blade without incident. No underlying ulcer. Recommend use of lotion daily. Recommend ``U felt offloading pads or mole skin. Rx for foot bath and Urea compounding cream. KERATOSIS: Educated patient about dry skin and the need to keep area clean. Discussed proper foot hygiene. I explained that severely thickened dry skin, may cause the skin to crack and fissure. Deep fissuring could lead to bacterial and/or fungus infection. No SOI currently. Discussed and Rx given for anti-infective foot bath/soaks. Apply otc lotion daily to feet. Rx given for compounding Urea cream to apply daily to thickened dry skin and any callused areas. Callus Care: Calluses x 9 were debrided with a number 15 blade without incident. No underlying ulcer. Recommend use of lotion daily. Recommend ``U felt offloading pads or mole skin. Dispensed U shaped pads x 3. Rx given for compounding Urea cream to apply daily. See above We discussed conservative treatment options. Conservative treatment options include change shoe wear, prefab or custom molded inserts, strapping, taping and padding. Patient can also take NSAIDs, ice and elevate for pain and swelling. Discussed that patient would benefit form wider and deeper shoe wear to accommodate the deformity. 1. Obtain WB 3 views b/l feet x-rays if feet become painful 2. Avoid barefoot walking 3. Continue wide shoes, house slippers for indoors 4. Follow up in 3-4 months Future Tests Future scheduled test information is unavailable Pending Tests Pending diagnostic test information is unavailable Future Visits Future appointment information is unavailable Referrals to Other Providers Reason for Referral Start Provider Provider Contact Provider Address Referral Date Information Admission to [facility] September [address] Future Procedures Future procedure information is unavailable Future Medications Future medication information is unavailable Patient Instructions Hammer Toe Oral Leukoplakia Seborrheic Keratosis Calluses and Corns Hammer Toe Correction Actinic Keratosis Balanced Diet Social History Smoking Status Status Date of Observation Smokes tobacco daily (finding) September 07, 2019 5:1 3pm Observation Status Date of Observation Not September 07, 2019 Assigned Sex Female Vital Signs Vital Reading Result Reference Range Collection Date/ Time Height 152.4 cm June 15, 2019 9:47am Weight 50.97 kg June 15, 2019 9:47am Heart Rate 82 /min 60-90 June 15, 2019 9:47am BP Systolic 123 mm[Hg] 110-140 June 15, 2019 9:47am BP Diastolic 56 mm[Hg] 60-90 June 15, 2019 9:47am BMI (Body Mass Index) 21.9 kg/m2 June 15, 2019 9:47am Height 144.78 cm September 08, 2 019 5:00am Weight 47.37 kg September 08, 2 019 5:00am Body Temperature 97.5 [degF] 97.6-99.6 September 08, 2019 8:00am Heart Rate 72 /min 60-90 September 08, 2 019 10:14am Respiratory rate 17 /min 12-24 September 08, 2019 8:00am Oxygen saturation by 93 % 95-100 September 082018 Pulse oximetry 10:14am BP Systolic 112 mm[Hg] 110-140 September 08, 2 019 8:00am BP Diastolic 49 mm[Hg] 60-90 September 08, 2 019 8:00am BMI (Body Mass Index) 22.6 kg/m2 August 232018 5:00am Inhaled oxygen 28 % September 08, 2 019 concentration 10:14am
[2019-09-09 06:19] LABS: Eosinophils % 0.1 % (0.1-12.0); Hematocrit 37.5 % (37.0-47.0); Hemoglobin 12.2 g/dL (12.2-16.2); Lymphocytes # 0.6 K/mm3 (0.7-4.5); Lymphocytes % 6.4 % (10-50); Mean Corpuscular HGB Conc 32.5 g/dL (31.8-35.4); Mean Platelet Volume 8.8 fl (7.4-10.4); Monocytes # 0.3 K/mm3 (0.1-1.0); Monocytes % 2.6 % (1.7-9.3); Neutrophils # 9.1 K/mm3 (1.8-7.8); Neutrophils % 90.8 % (37.0-80.0); Platelet Count 221 K/mm3 (142-424); Red Blood Count 4.04 M/mm3 (4.20-5.40); Red Cell Distribution Width 12.8 % (11.5-17.5)
[2019-09-09 06:27] LABS: Anion Gap 8.8 mEq/L (5-15); Calcium 8.9 mg/dL (8.5-10.1)
[2019-09-09 08:03] LABS: Lymphocytes % 10 % (10-50); Monocytes % 2 % (2-9); Neutrophils % 88 % (42-76); RBC Morphology Normal; Total Cells Counted 100
--- NOTE | 2019-09-09 13:25 | Progress Note ---
Internal Medicine - PN: Subj *Date: 09/10/19 *Time: 06:47 Interval history: doing better but not at baseline Exam Vital signs and Labs for Last 24 Hours: Temp Pulse Resp BP Pulse Ox 98.4 F 76 20 122/57 L 95 09/09/19 07:42 09/09/19 13:19 09/09/19 07:42 09/09/19 07:42 09/09/19 13:19 Laboratory Results - last 24 hr 09/09/19 05:44: WBC 10.0 D, RBC 4.04 L, Hgb 12.2, Hct 37.5, MCV 93.0, MCH 30.2, MCHC 32.5, RDW 12.8, Plt Count 221, MPV 8.8, Neut % (Auto) 90.8 H, Lymph % (Auto) 6.4 L, [place] % (Auto) 2.6, Eos % (Auto) 0.1, Baso % (Auto) 0.0 L, Neut # (Auto) 9.1 H, Lymph # (Auto) 0.6 L, [place] # (Auto) 0.3, Eos # (Auto) 0.0, Baso # (Auto) 0.0, Total Counted 100, Neutrophils % (Manual) 88 H, Lymphocytes % (Manual) 10, Monocytes % (Manual) 2, Platelet Estimate Normal, RBC Morphology Normal 09/09/19 05:44: Sodium 144, Potassium 4.8, Chloride 110 H, Carbon Dioxide 30, Anion Gap 8.8, BUN 15, Creatinine 0.46 L, Estimated Creat Clear 31, Estimated GFR 129, Est GFR ( Amer) 156, Glucose 141 H D, Calcium 8.9 I & O for Last 24 hours: Intake & Output 09/07/19 09/08/19 09/09/19 09/10/19 11:59 11:59 11:59 11:59 Intake Total 1979 / 1979 2651 / 2651 120 / 120 Output Total 650 / 650 Balance 1330 / 1330 2651 / 2651 120 / 120 Weight 104 lb 7 oz 107 lb 1 oz Microbiology Reports for the Last 24 Hours: Microbiology 09/07/19 13:50 Urine,Catheterized Urine Culture - Preliminary NO GROWTH AFTER 24 HOURS - Constitutional no acute distress - *Routine HEENT Exam Head: Present: normocephalic Eye: Present: EOMI, PERRL ENT: Present: mucous membranes dry - *Routine Neck Exam Present: supple. Absent: JVD - *Routine Respiratory Exam Present: CTA bilaterally - *Routine Cardiovascular Exam Present: RRR, murmur, S4 - *Routine Abdominal Exam Present: soft - *Routine Extremities Exam Absent: calf tenderness - *Routine Skin Exam Present: intact - *Routine Neurological Exam Present: alert, CN II-XII intact - Routine Psychiatric Exam Present: normal affect Assessment and Plan (1) UTI (urinary tract infection) Current visit: Yes Status: Acute Qualifiers: Urinary tract infection type: acute cystitis Hematuria presence: with hematuria Qualified Code(s): N30.01 - Acute cystitis with hematuria Category: Medical Code(s): N39.0 - Urinary tract infection, site not specified (2) Altered mental status Current visit: Yes Status: Acute Qualifiers: Altered mental status type: disorientation Qualified Code(s): R41.0 - Disorientation, unspecified Category: Medical Code(s): R41.82 - Altered mental status, unspecified (3) Chronic obstructive pulmonary disease (COPD) Current visit: Yes Status: Acute Qualifiers: COPD type: unspecified COPD Qualified Code(s): J44.9 - Chronic obstructive pulmonary disease, unspecified Category: Medical Code(s): J44.9 - Chronic obstructive pulmonary disease, unspecified (4) Cigarette smoker Current visit: Yes Status: Acute Category: Medical Code(s): F17.210 - Nicotine dependence, cigarettes, uncomplicated (5) Generalized weakness Current visit: Yes Status: Acute Category: Medical Code(s): R53.1 - Weakness
--- NOTE | 2019-09-10 08:42 | Discharge Summary ---
General - General Admission date:: 09/07/19 Discharge date: 09/10/19 HPI HPI: 84-year old thin chronic ill appearing female with a history of COPD is brought to the ED by her family who report that the patient is confused, patient was found by family members to be slow to answer questions and slow to initiate movement. She placed her oxygen in her mouth rather than on her nose and had given herself a breathing treatment. Per family patient was her normal self on Saturday. Pt admitted for uti with 3+ bacteria. culture pending. Hospital Course Hospital Course: chest x ray:IMPRESSION: 1. No definite acute finding. 2. Faint opacity right midlung which could be due to healing rib fracture, overlying summation density, or developing nodule ct head:IMPRESSION: No acute intracranial finding White blood cells on 09/07 was 21.7 on 09/08-.7 Urine showed 3+ bacteria cultures are negative we will treat with 3 more days of Levaquin p.o. [facility]. Today patient will be discharged to [facility] for rehab and will be followed by Dr. Duff. We will do a urine culture 3 days after completion of antibiotics to rule that UTI has improved. COPD with an acute flare with a hypoxic event. While in the hospital patient had some owners. Objective Vital signs: Temp Pulse Resp BP Pulse Ox 97.9 F 78 18 155/91 H 90 L 09/10/19 04:00 09/10/19 05:57 09/10/19 04:00 09/10/19 04:00 09/10/19 05:57 no acute distress - *Routine HEENT Exam Head: Present: normocephalic Eye: Present: PERRL ENT: Present: mucous membranes moist - *Routine Respiratory Exam Present: CTA bilaterally - *Routine Cardiovascular Exam Present: RRR - *Routine Abdominal Exam Present: soft, normoactive bowel sounds - *Routine Extremities Exam Present: full ROM - *Routine Skin Exam Present: intact - *Routine Neurological Exam Present: alert - Routine Psychiatric Exam Present: normal affect Comments: confused at times Results Labs on day of discharge: Labs from last 24 hours 09/10/19 03:57 POC Glucose 128 H Preliminary micro results at discharge 09/07/19 14:00 Blood Culture - Preliminary Blood NO GROWTH AFTER 48 HOURS 09/07/19 14:02 Blood Culture - Preliminary Blood NO GROWTH AFTER 48 HOURS DS: Diagnosis - Discharge Diagnosis (1) UTI (urinary tract infection) Status: Acute (2) Altered mental status Status: Acute (3) Chronic obstructive pulmonary disease (COPD) Status: Acute (4) Cigarette smoker Status: Acute (5) Generalized weakness Status: Acute (6) COPD exacerbation Status: Acute (7) Leukocytosis Status: Acute Discharge Plan - Patient Discharge Instructions ACTIVITY: Continue current activity DIET: continue same diet Patient Instructions: DI for Chronic Obstructive Pulmonary Disease, DI for Urinary Tract Infection (UTI), DI for Altered Mental Status - Follow up Plan Follow up with: Saul Duff MD [Staff Physician] - Disposition: [facility] Home Medications: Home Medications Medication Instructions Recorded Confirmed Type Aspirin [Aspirin 81mg EC Tab] 81 mg PO DAILY 09/07/19 09/07/19 History Buspirone HCl [Buspirone 15 mg 7.5 mg PO BID 09/07/19 09/07/19 History Tablets] Citalopram Hydrobromide [Celexa 10 mg PO DAILY 09/07/19 09/07/19 History 10mg Tablet] Fluticasone Propionate [Flonase 1 spr NS DAILY 09/07/19 09/08/19 History 50mcg nasal spray 16gm] Ipratropium/Albuterol Sulfate 1 puff IH DAILY 09/07/19 09/07/19 History [Combivent Respimat Inh] Ipratropium/Albuterol Sulfate 3 ml IH DAILY 09/07/19 09/07/19 History [Duoneb 3mL neb] Mirtazapine [Remeron 15mg tablet] 15 mg PO HS 09/07/19 09/07/19 History Simvastatin 20 mg PO HS 09/07/19 09/07/19 History Solifenacin Succinate [Vesicare] 5 mg PO DAILY 09/07/19 09/07/19 History Fluticasone Propionate 1 puff IH BID 09/08/19 09/08/19 History [Fluticasone Hfa 220mcg Inhaler] levoFLOXacin [Levaquin 500mg 500 mg PO DAILY 3 Days #3 tab 09/10/19 Rx tab] Prescriptions/Medication Reconciliation: New levoFLOXacin [Levaquin 500mg tab] 500 mg PO DAILY 3 Days #3 tab Continued Aspirin [Aspirin 81mg EC Tab] 81 mg PO DAILY Solifenacin Succinate [Vesicare] 5 mg PO DAILY Simvastatin 20 mg PO HS Mirtazapine [Remeron 15mg tablet] 15 mg PO HS Ipratropium/Albuterol Sulfate [Duoneb 3mL neb] 3 ml IH DAILY Ipratropium/Albuterol Sulfate [Combivent Respimat Inh] 1 puff IH DAILY Buspirone HCl [Buspirone 15 mg Tablets] 7.5 mg PO BID Fluticasone Propionate [Flonase 50mcg nasal spray 16gm] 1 spr NS DAILY Citalopram Hydrobromide [Celexa 10mg Tablet] 10 mg PO DAILY Fluticasone Propionate [Fluticasone Hfa 220mcg Inhaler] 1 puff IH BID - Problem Reconciliation Problems Reviewed?: Yes
--- NOTE | 2019-09-10 09:21 | Electrocardiograph Report ---
APPROVED REPORT Exam: Resting ECG HR:94 bpm ECG Measurements Heart Rate 94 AXES WV 162 P 86 QRSd 72 QRS 73 QT 340 T79 QTc 425 <Conclusion> Normal sinus rhythm Normal ECG Electronically signed by : Geo Whitley, 09/10/2019 09:20:48
[2019-09-10 10:16] LABS: Basophils % 0.1 % (0.1-2.0); Eosinophils # 0.1 K/mm3 (0.0-0.4); Eosinophils % 1.2 % (0.1-12.0); Hematocrit 43.1 % (37.0-47.0); Hemoglobin 14.2 g/dL (12.2-16.2); Lymphocytes # 0.7 K/mm3 (0.7-4.5); Lymphocytes % 6.9 % (10-50); Mean Corpuscular HGB Conc 32.8 g/dL (31.8-35.4); Mean Corpuscular Volume 93.7 fl (81-99); Mean Platelet Volume 8.6 fl (7.4-10.4); Monocytes # 0.3 K/mm3 (0.1-1.0); Monocytes % 2.7 % (1.7-9.3); Neutrophils # 8.5 K/mm3 (1.8-7.8); Neutrophils % 89.3 % (37.0-80.0); Platelet Count 284 K/mm3 (142-424); Red Cell Distribution Width 12.9 % (11.5-17.5); White Blood Count 9.5 K/mm3 (4.8-10.8)
[2019-09-10 10:47] LABS: Anion Gap 11.8 mEq/L (5-15); Calcium 8.6 mg/dL (8.5-10.1)
[2019-09-10 11:12] LABS: Eosinophils % 1 % (0-3); Lymphocytes % 6 % (10-50); Neutrophils % 93 % (42-76); RBC Morphology Normal; Total Cells Counted 100
== END 2019-09-10 11:59 | DRG 690 ==
LOC: ER 12:26 → 2ND 12:26 → OBSVTOIN 16:52 → 2ND 16:53
PROVIDERS: ADMIT Emergency Medicine; ATTEND Emergency Medicine
CPT/HCPCS: 36415; 70450; 71010; 71045; 80048; 80053; 80061; 81001; 82803; 82962; 83605; 83735; 84100; 84443; 84484; 85007; 85025; 87040; 87086; 93005; 94640; 94761; 96365; 96367; 97116; 97162; 97166; 97530; 97535; 99285; J1956